=== PATIENT | male | born 1955 | race Asian ===

== ENCOUNTER 2018-11-27 14:26 | Emergency (ER) | payer MEDICAID ==
[~2018-11-27] VITALS: Ht 167.6 cm; Wt 53.8 kg
--- NOTE | 2018-11-27 14:58 | NUR ---
PT CO OF GOUT IN LEFT FOOT AND RIGHT TOE. PT RAN OUT OF MEDICINE
[2018-11-27 14:59] VITALS: BP 108/75
[2018-11-27] MEDS ORDERED: COLCHICINE 0.6 MG CAPSULE ONE ×2 (15:20→15:44)
[2018-11-27] MEDS ORDERED: COLCHICINE 0.6 MG CAPSULE PO ONE (15:30)
[2018-11-27] MEDS ORDERED: COLCHICINE 0.6 MG CAPSULE PO SCH (16:30)
== END 2018-11-27 15:46 | disposition home or self-care (01) ==
LOC: ED 15:25
DX: M10.9 Gout, unspecified (principal); M13.872 Other specified arthritis, left ankle and foot; L03.116 Cellulitis of left lower limb
CPT/HCPCS: 99283